=== PATIENT | female | born 1960 | race Caucasian/White ===

== ENCOUNTER 2018-07-06 10:06 | Emergency (ER) | payer OTHER ==
--- NOTE | 2018-07-06 10:30 | ED ---
Back Pain - HPI Summary HPI Summary: 54 yo F with hx back surg at [facility] in 2015, c/o low lumbar back pain x 3-[address] Durant on 07/03/[address] Durant ordered MRI's and lidocaine patch. Pt states she applied two lidocaine patches today and took her daughter's flexeril without relief. States vicodin has helped her in the past. No JETER, dizziness, chest pain, SOB, fever, abd pain, N,V or incontinence. Pain radiates from low lumbar to buttock and down right leg. Is able to walk but painful. Denies urinary sxs. Pain is sharp, rated 9/10. Pain is getting worse. Denies injury. States she lifted something heavy and pain started after that. - History of Current Complaint Chief Complaint: EDBackInjuryPain Stated Complaint: BACK PIAN Time Seen by Provider: 07/06/18 10:15 Hx Obtained From: Patient Onset/Duration: Sudden Onset, Lasting Days, Still Present, Worse Since - this am Onset/Duration: Started Days Ago Timing: Constant Back Pain Location: Is Discrete @ - low lumbar Severity Initially: Moderate Severity Currently: Severe Pain Intensity: 10 Pain Scale Used: 0-10 Numeric Character: Sharp Aggravating Symptom(s): Movement, Lifting, Walking Alleviating Symptom(s): Nothing Associated Signs And Symptoms: Positive: Pain with Weight Bearing. Negative: Fever, Weakness, Numbness, Tingling, Abdominal Pain, Flank Pain, Bladder Incontinence, Bowel Incontinence - Risk Factors Cauda Equina Risk Factors: Negative - Allergies/Home Medications Allergies/Adverse Reactions: Allergies Allergy/AdvReac Type Severity Reaction Status Date / Time NICKEL/METAL Allergy ITCHY RASH Uncoded 07/06/18 10:12 PMH/Surg Hx/FS Hx/Imm Hx Previously Healthy: No Endocrine/Hematology History: Reports: Hx Diabetes - ON MEDS Cardiovascular History: Reports: Hx Hypercholesterolemia, Hx Hypertension - ON MEDS Denies: Hx Pacemaker/ICD Respiratory History: Reports: Hx Asthma, Hx Chronic Obstructive Pulmonary Disease (COPD), Other Respiratory Problems/Disorders GI History: Reports: Hx Gastroesophageal Reflux Disease - ON MED History: Denies: Hx Renal Disease Musculoskeletal History: Reports: Hx Bursitis, Other Musculoskeletal History - LEFT FOOT BUNION, prior lumbar back surg Sensory History: Reports: Hx Contacts or Glasses - GLASSES Denies: Hx Hearing Aid Opthamlomology History: Reports: Hx Contacts or Glasses - GLASSES Psychiatric History: Reports: Hx Depression - NO MEDS Denies: Hx Panic Disorder - Surgical History Surgery Procedure, Year, and Place: TONSILS,TUBAL; LOW BACK DISC 07/2014, cranial surg at [place] for facial tic Hx Anesthesia Reactions: No Infectious Disease History: No Infectious Disease History: Denies: Traveled Outside the [place] in Last 30 Days - Family History Known Family History: Positive: Hypertension - Social History Occupation: Employed Full-time Lives: With Family Alcohol Use: None Substance Use Type: Reports: None Smoking Status (MU): Heavy Every Day Tobacco Smoker Type: Cigarettes Amount Used/How Often: 1/2 PPD Length of Time of Smoking/Using Tobacco: 25 YEARS Have You Smoked in the Last Year: Yes Review of Systems Constitutional: Negative Cardiovascular: Negative Respiratory: Negative Gastrointestinal: Negative Positive: no symptoms reported. Negative: burning, dysuria, frequency, flank pain, hematuria, incontinence, pain, urgency Positive: Arthralgia Skin: Negative Neurological: Negative Psychological: Normal All Other Systems Reviewed And Are Negative: Yes Physical Exam Triage Information Reviewed: Yes Vital Signs On Initial Exam: Initial Vitals Temp Pulse Resp BP Pulse Ox 97.2 F 89 14 169/92 98 07/06/18 10:07 07/06/18 10:07 07/06/18 10:07 07/06/18 10:07 07/06/18 10:07 Vital Signs Reviewed: Yes Appearance: Positive: Well-Appearing, Pain Distress, Obese Skin: Positive: Warm, Skin Color Reflects Adequate Perfusion, Dry Head/Face: Positive: Normal Head/Face Inspection Eyes: Positive: EOMI, Conjunctiva Clear ENT: Positive: Normal ENT inspection Neck: Positive: Supple Respiratory/Lung Sounds: Positive: Clear to Auscultation Cardiovascular: Positive: RRR, Pulses are Symmetrical in both Upper and Lower Extremities Abdomen Description: Positive: Nontender, No Organomegaly, Soft. Negative: CVA Tenderness (R), CVA Tenderness (L), Distended, Guarding Bowel Sounds: Positive: Present Musculoskeletal: Positive: Strength/ROM Intact, Pain @ - low lumbar, Other - 5/ 5 strength in lower extremities. Sensation intact. Dorsiflexion and plantar flexion intact. No spinal tenderness on palpation.. Negative: Edema Left, Edema Right Neurological: Positive: Sensory/Motor Intact, Alert, Oriented to Person Place, Time, Abnormal Reflex @ - bilat knee and ankle reflexes absent, Abnormal Gait - antalgic, Facial Symmetry, Speech Normal. Negative: Normal Gait, Focal Deficit @ Psychiatric: Positive: Normal Diagnostics - Vital Signs Vital Signs Temp Pulse Resp BP Pulse Ox 07/06/18 10:07 97.2 F 89 14 169/92 98 - Laboratory Lab Statement: Any lab studies that have been ordered have been reviewed, and results considered in the medical decision making process. - CT Lumbar spine CT CT Interpretation Completed By: Radiologist Summary of CT Findings: IMPRESSION: 1. OSTEOPENIA. 2. SPONDYLOLYSIS WITH SPONDYLOLISTHESIS AT L5-S1. 3. DEGENERATIVE DISC DISEASE AND OSTEOARTHRITIS. 4. THERE IS MULTILEVEL NEURAL FORAMINAL NARROWING DESCRIBED ABOVE. 5. THERE IS NO SIGNIFICANT CENTRAL CANAL STENOSIS. Dr. Arceo has reviewed this radiology report. Re-Evaluation - Re-Evaluation First Eval Re-Evaluation Time: 11:15 Change: Unchanged Comment: Pt still c/o pain. Will give morphine 10 mg IM x 1 and RX hydrocodone and flexeril as outpt Rx. Second Eval Re-Evaluation Time: 12:15 Change: Improved Comment: Pain is improved. Agrees to discharge. Informed about hematuria and need for f/u. Back Pain Course/Dx - Course Course Of Treatment: 58 yo F with lumbar back pain, s/p hx of lumbar spine surg at [facility] 2014, x 3 days after lifting heavy pt at work. Pt has no neuro deficit, and no cauda equina symptoms, no red flags. CT with no acute findings. UA with hematuria. Pt with no hx kidney stones, and pain not typical for renal calculi and CT shows no abnl of kidneys. Pt given toradol 30mg IM without relief. Requests additional "shot". Given morphine 10mg IM. Will RX hydrocodone and flexeril and advise pt to keep appts for MRI's, and to f/u with Dr. Durant. Work release given. - Diagnoses Differential Diagnosis/HQI/PQRI: Positive: Arthritis, Cauda Equina Syndrome, Compressive Cord Syndrome, Herniated Disc, Strain, Sprain Provider Diagnoses: S/P lumbar laminectomy, Acute lumbar back pain, Spondylolisthesis at L5-S1 level, Hematuria, microscopic Discharge - Sign-Out/Discharge Documenting (check all that apply): Patient Departure - home - Discharge Plan Condition: Stable Disposition: HOME Prescriptions: Cyclobenzaprine TAB* [Flexeril 10 MG TAB*] 10 mg PO TID PRN #20 tab PRN Reason: Pain HYDROcodone/ACETAMIN 5-325 MG* [[place] 5-325 TAB*] 1 tab PO Q4H PRN #18 tab MDD 6 PRN Reason: Pain Patient Education Materials: Low Back Strain (ED), Hematuria (ED) Forms: *Work Release Referrals: Leticia Durant MD [Primary Care Provider] - 2 Days Additional Instructions: Your urine sample showed some hidden blood. This does not appear to be related to your back pain at this time, but it should be followed and rechecked by Dr. Durant within the next 1-[address] of your LS spine does show cause for your pain, but no acute need for intervention. You were given a shot of ketorolac 30mg with minimal relief, and then a shot of morphine 10mg with more relief. Dr. Arceo has prescribed hydrocodone and flexeril that you may use as directed for pain. Keep your appointments for MRI's and follow up with Dr. Durant as scheduled and directed. Return to the ER if any new or worsening symptoms. - Billing Disposition and Condition Condition: STABLE Disposition: Home
[2018-07-06] MEDS ORDERED: Ketorolac INJ* 30 MG/ML 1 ML VIAL IM ONE (10:35)
--- OUTSIDE RECORDS SUMMARY | 2018-07-06 10:35 | XMS REPORT | Continuity of Care Document ---
:1960 External Reference #:[id number] Author Name Alessandra Pozo Care Team Providers Name Role Phone Leticia Durant MD Primary Care Physician Unavailable Payers Type Date Identification Numbers Payment Provider Subscriber Effective: Policy Number: [id number] [employer] 2012 Group Number: [id number] [address] Group Name: [place] [address] PayID: [id number] Expires: 2012 Policy Number: [id number] [employer] Group Number: [id number] [address] PayID: [id number] [place] [address] Advance Directives Description No Information Available Problems Date Description Provider Status Onset: 11/21/2010 Hyperlipidemia Sol Reynoso M.D., FACP Active Onset: 11/21/2010 Tobacco user Sol Reynoso M.D., FACP Active Onset: 11/21/2010 Depressive disorder Sol Reynoso M.D., FACP Active Onset: 11/21/2010 Benign essential hypertension Sol Reynoso M.D., FACP Active Onset: 03/26/2012 Type 2 diabetes mellitus Sol Reynoso M.D., FACP Active Onset: 02/08/2015 Hemifacial spasm Yesenia Olivarez M.D. Active Onset: 02/08/2015 Restless legs Yesenia Olivarez M.D. Active Onset: 05/09/2015 Essential hypertension Sridevi Callahan N.P. Active Family History Date Family Member(s) Problem(s) Comments Father due to Stroke () Mother due to Septic from UTI () Mother 93 First Daughter Fibromyalgia Lyme Disease Second Daughter Increased Intrcranial Pressure Siblings 6 2 Sisters - HTN, High Cholesterol 1 Half Sister - Health unknown 1 Half Brother - Health unknown 1 Half Sister - Age 63 DM1, after back surgery 1 Half Brother - Age 65, early dementia, brain trauma Social History Type Date Description Comments Sex Unknown Marital Status Lives With Boyfriend Occupation [facility] Tobacco Use Start: Unknown Light tobacco smoker (10 or fewer cigarettes/day) Smoking Status Reviewed: 07/03/18 Light tobacco smoker (10 or fewer cigarettes/day) ETOH Use Denies alcohol use Tobacco Use Start: Unknown Patient is a current 1/2 pack daily, smoker, smokes every trying to quit. day Recreational Drug Use Denies Drug Use Exercise Type/Frequency Exercises rarely Allergies, Adverse Reactions, Alerts Description No Known Drug Allergies Medications Medication Date Status Form Strength Qnty SIG Indications Ordering Provider Proair HFA 05/15 Active Aerosol 108(90Bas 25.5g 1 - 2 e) m puffs by Varn, N.P. mcg/Act mouth every 4 hours as needed Gabapentin 04/25 Active Capsules 300mg 360ca one ps capsule po Varn, N.P. at noon, take 2 to 3 capsules by mouth at bedtime as directed Lidocaine 01/17 Active Patches 5% 90uni Apply 1 ts Patch For Varn, N.P. Up To 12 Hours Once A Day. Omeprazole 10/31 Active Capsules 40mg 90cap Take 1 DR s Capsule By Varn, N.P. Mouth Every Day Simvastatin 03/14 Active Tablets 20mg 90tab Take 1 E78.5 s Tablet By Varn, N.P. Mouth AT Bedtime Metformin HCL 03/14 Active Tablets 1000mg 90tab Take 1 s Tablet By Varn, N.P. Mouth With Dinner Hydrochlorothiazid 12/07 Active Tablets 25mg 90tab Take 1 s Tablet By Varn, N.P. Mouth Daily Ibuprofen 00/00 Active Capsules 200mg prn Unknown /0000 Prednisone 05/08 Hx TBPK 10mg (21) 21uni 4 tabs J44.1 ts day#1, 3 MD Jackie - tabs 05/16 day#2, tabs day#3, 1 tab for 7 days Bactroban 04/01 Hx Cream 2% 15uni apply to Z00.00 ts affected PATRICIA Roberson - area twice 04/152018 Prednisone 07/31 Hx Tablets 10mg 20tab 4 tabs by J44.1 s mouth days PATRICIA Roberson - 1-2; 3 08/08 tabs by mouth on days 3-4, 2 tabs by mouth on days 5-6, 1 tab by mouth days 7-8 Levofloxacin 07/31 Hx Tablets 500mg 10tab one by Yuriy.1 s mouth PATRICIA Roberson - daily for 08/10 10 Tussionex 07/31 Hx Suer 10-8mg/5M 115ml 5ml twice J44.1 Norris Pennkine L daily as PATRICIA Roberson Extended Release - needed for 08/30 cough Spiriva Respimat 07/05 Hx Aerosol 2.5mcg/Ac 4gm inhale two J44.1 t puffs by Cotton, - mouth M.D. 10/18 every Prednisone 07/05 Hx Tablets 10mg 20tab 4 tabs by J44.1 s mouth days Cotton, - 1-2; 3 M.D. 07/31 tabs by mouth on days 3-4, 2 tabs by mouth on days 5-6, 1 tab by mouth days 7-8 Azithromycin 07/05 Hx Tablets 250mg 6tabs 2 tabs by J44.1 mouth on Cotton, - day 1; 1 M.D. 07/31 tab by mouth every day on days 2-5 Clotrimazole 07/05 Hx Chuck 10mg 70uni 1 by mouth K13.79 ts 5 times Cotton, - daily as M.D. 07/19 needed for 2 weeks Azithromycin 07/26 Hx Tablets 250mg 6tabs two tabs day one, [place], N.P. - one daily 08/05 till Bupropion HCL ER 02/22 Hx Tablets 150mg 30tab take 1 Leticia (XL) ER 24HR s tablet by Cotton, - mouth one M.D. 02/07 time daily Fluoxetine HCL 10/31 Hx Tablets 20mg 90tab take 1 F32.9 s tablet by Varn, N.P. - mouth / every Ventolin HFA 05/16 Hx Aerosol 108(90Bas 90day 2 puffs by e) s mouth four Varn, N.P. - mcg/Act times a 03/12 day needed Omeprazole 05/16 Hx Capsules 20mg 90cap take [address] self capsule Varn, N.P. - daily 10/31 Proair HFA 05/16 Hx Aerosol 108(90Bas 25.5g 1 to 2 J20.9 e) m inhalation Varn, N.P. - mcg/Act s every 4 04/12 hours needed Advair Diskus 05/09 Hx Aerosol 500-50mcg 60uni Use 1 puff J20.9 /Dose ts twice Varn, N.P. - daily 03/12 Pulmicort 04/29 Hx Aerosol 180mcg/Ac 1unit 2 puffs J20.9 t s twice Varn, N.P. - daily 05/09 Tylenol With 04/28 Hx Tablets 300-30mg 15tab 1 tablet Leticia Codeine #3 s by mouth Cotton, - every 8 M.D. 09/18 hours needed for pain Omeprazole 03/21 Hx Capsules Na 90cap Take 1 DR self Capsule Varn, N.P. - Daily 05/16 Carbamazepine 02/08 Hx Tablets 200mg 120ta 1 tab by 781.0 Yesenia Rodriguez bs mouth 3-4 Juanis, - times a M.D. 03/02 day directed. Methocarbamol 10/15 Hx Tablets 500mg 45tab one to two 722.10 Shawn Briscoe /2014 s up to four Robin, - times a M.D. 02/07 day needed for spasm Flexeril 08/03 Hx Tablets 10mg 60tab 1 by mouth Shawn Briscoe /2014 s three Pollack, - times a M.D. 08/03 day as needed Fluoxetine HCL 05/20 Hx Capsules 20mg 30cap 1 by mouth s every day Varn, N.P. - 02/07 Cymbalta 05/[address] 30mg 30cap 1 by mouth 311 Part s every day Varn, N.P. - 05/20 Gabapentin 05/07 Hx Capsules 300mg 270ca Take 2 To ps 3 Capsules Varn, N.P. - By Mouth 02/02 AT Bedtime /2017 as Directed Hydrocodone-Acetam 04/22 Hx Tablets 5-325mg 90tab 1-2 tab by 724.5 Shawn Briscoe ino s mouth Robin, - every 6 M.D. 02/07 hours needed for pain Gabapentin 10/22 Hx Capsules 100mg 90cap 1-3 at s night Angeles, - M.DMagaly, FACP 05/07 Zolpidem Tartrate 10/22 Hx Tablets 5mg 20tab 1 tab at 378.9 s bedtime as Angeles, - needed for M.D., FACP 02/07 Azithromycin 04/27 Hx Tablets 250mg 6tabs two tabs 466.0 day one, Varn, N.P. - one daily 05/07 till Benzonatate 04/27 Hx Capsules 200mg 30cap one by 466.0 s mouth Varn, N.P. - three 06/23 daily as needed for cough Nebulizer 04/27 Hx Use prn 466.0 for asthma Varn, N.P. - 02/07 Ipratropium 04/27 Hx Solution 0.5-2.5(3 90uni 1 vial in 466.0 [employer]/Albuterol )mg/3ML ts nebulizer Varn, N.P. Sulfate - three 05/11 times day as needed for asthma Ventolin HFA 04/27 Hx Aerosol 108(90Bas 1unit 1 to 2 e) s inhalation Varn, N.P. - mcg/Act s every 4 02/07 hours needed Oxycodone HCL 11/21 Hx Tablets 5mg 30tab 1-2 po qid Shawn Briscoe /2012 s prn Yudelka Kelly M.D. 04/08 Cyclobenzaprine 09/08 Hx Tablets 10mg 60tab one by 724.5 Shawn Briscoe HCL s mouth Robin, - three M.D. 02/07 times day as needed spasm Called Rx Hydrocodone/Acetam 09/08 Hx Tablets 5-325mg 90tab 1 tablet 724.5 Shawn Briscoe inophen s every 4 - Robin, - 6 hours as M.D. 04/22 needed pain Medrol Dosepak 09/08 Hx Tablets 4mg 1pak as directed Varn, N.P. - 09/14 Medrol Dosepak 02/04 Hx Tablets 4mg 1tabs follow 722.93 Sol package Angeles, - directions M.DMagaly, FACP 03/26 take with food Cyclobenzaprine 02/04 Hx Tablets 10mg 60tab 1 tablet Sol HCL s three Angeles, - times a M.D., FACP 03/26 day needed Lumbar Support 02/04 Hx 722.93 Sol Brace Yudelka Reynoso M.D., FACP 04/08 Ultram 01/21 Hx Tablets 50mg 30tab sig 1 po Sol s q8h prYudelka Cohen M.D., FACP 09/08 Oxycodone/Acetamin 01/13 Hx Capsules 5-500mg 40cap 1 tablet 724.3 Sol ophen s by mouth Angeles, - every 4-6 M.D., FACP 03/26 hours needed Escitalopram 11/28 Hx Tablets 20mg 90tab Take 1 Sol Oxalate s Tablet Angeles, - Daily M.D., FACP 09/08 Azithromycin 11/19 Hx Tablets 250mg 6tabs 2 tab po 466.0 Joana /2011 day 1 then Alexander, - 1 tab po M.D. 02/04 day 2- Cyclobenzaprine 10/18 Hx Tablets 5mg 30tab take 1-2 Sol s tablet by Angeles, - mouth M.D., [facility] 02/04 times as needed Metformin HCL ER 12/07 Hx Tablets 500mg 90tab Take 1 ER 24HR s Tablet Angeles, - Daily M.D., FACP 03/14 Simvastatin 11/21 Hx Tablets 10mg 90tab 1 at 272.4 s bedtime Angeles - Neeraj, [facility] 03/14 Albuterol Inhaler 08/30 Hx 3unit 2 puffs po s qid prn Yudelka Reynoso M.D., [facility] 05/16 Niaspan 07/13 Hx Tablets 500mg 270ta 3 tablets ER bs once daily Angeles, - at bedtime M.D., [facility] 03/14 Nicorette 01/31 Hx TTS 50uni use as ts directed Yudelka Reynoso M.D., [facility] 07/13 Zocor 12/30 Hx Tablets 40mg 90tab 1 tablet s every Angeles, - night M.D., [facility] 07/13 HCTZ 12/30 Hx 25mg. 90uni 1 tablet ts every Angeles, - morning M.D., [facility] 03/14 Lexapro 12/30 Hx Tablets 20mg 90tab 1 tablet s every day Angeles, - M.D., [facility] 11/28 Metformin HCL XR 12/30 Hx Tablets 500mg 90tab 1 tablet s by mouth Angeles, - daily M.D., [facility] 03/14 Gabapentin 12/30 Hx Capsules 300mg 180ca 1 Tablet ps Twice Angeles, - Daily M.D., [facility] 10/22 Omeprazole 12/30 Hx Capsules 20mg 90cap take 1 s capsule [place], N.P. - daily 03/21 Lidocaine Hx Patches 5% 90uni apply Sridevi /0000 ts patch up Varn, N.P. - to 12 05/04 hours once /2017 a day. Medications Administered in Office Medication Date Status Form Strength Qnty SIG Indications Ordering Provider Inj, 07/20/ Administered Injection Reinaldo D. Regadenoson, 0.1 2013 Brand, MG M.D. Inj, 07/20/ Administered Injection Luiza Regadenoson, 0.1 2013 Cary, MG M.D. Aminophylline 07/20/ Administered Injection Reinaldo D. 2013 Brand, M.D. Aminophylline 07/20/ Administered Injection Luiza 2013 Cary, M.D. Technetium TC 07/20/ Administered Injection Reinalod D. 99M Tetrofosmin, 2013 Brand, Per Unit Dose Up M.D. To 40 Millicuries Technetium TC 07/20/ Administered Injection Luiza 99M Tetrofosmin, 2013 [place], Per Unit Dose Up M.D. To 40 Millicuries Immunizations CPT Code Status Date Vaccine Lot # [id number] Given 05/28/2018 Pneumonia Vaccine [id number] Given 05/28/2018 Influenza Virus Vaccine, Quadrivalent, Split, Preservative Free Vital Signs Date Vital Result Comment 07/03/2018 11:31am Height 64 inches 5'4" Weight 212.00 lb Heart Rate 82 /min BP Systolic Sitting 120 mmHg BP Diastolic Sitting 77 mmHg O2 % BldC Oximetry 97 % BMI (Body Mass Index) 36.4 kg/m2 05/08/2018 12:42pm Height 64 inches 5'4" Weight 221.00 lb Heart Rate 80 /min BP Systolic Sitting 110 mmHg Lue large cuff BP Diastolic Sitting 70 mmHg Lue large cuff Respiratory Rate 12 /min O2 % BldC Oximetry 98 % BMI (Body Mass Index) 37.9 kg/m2 04/01/2018 10:41am Height 64 inches 5'4" Weight 213.00 lb Heart Rate 83 /min BP Systolic Sitting 118 mmHg BP Diastolic Sitting 58 mmHg Body Temperature 97.9 F O2 % BldC Oximetry 94 % BMI (Body Mass Index) 36.6 kg/m2 03/13/2018 3:04pm Height 64 inches 5'4" Weight 212.00 lb Heart Rate 76 /min BP Systolic Sitting 118 mmHg BP Diastolic Sitting 86 mmHg Respiratory Rate 14 /min O2 % BldC Oximetry 98 % BMI (Body Mass Index) 36.4 kg/m2 11/23/2017 7:49am Height 64 inches 5'4" Weight 214.00 lb Heart Rate 80 /min BP Systolic Sitting 146 mmHg BP Diastolic Sitting 92 mmHg Respiratory Rate 14 /min O2 % BldC Oximetry 94 % BMI (Body Mass Index) 36.7 kg/m2 Neck Circumference in inches 14.75 10/18/2017 4:23pm Weight 218.00 lb Heart Rate 81 /min BP Systolic 119 mmHg BP Diastolic 72 mmHg Body Temperature 97.4 F O2 % BldC Oximetry 97 % 09/18/2017 11:17am Weight 214.12 lb Heart Rate 79 /min BP Systolic 132 mmHg BP Diastolic 74 mmHg Body Temperature 97.0 F O2 % BldC Oximetry 97 % 07/31/2017 3:59pm Heart Rate 80 /min BP Systolic 142 mmHg BP Diastolic 80 mmHg Body Temperature 97.5 F O2 % BldC Oximetry 96 % 07/05/2017 11:28am Weight 216.50 lb Heart Rate 78 /min BP Systolic 136 mmHg BP Diastolic 72 mmHg Body Temperature 97.4 F O2 % BldC Oximetry 94 % with deep breaths 02/07/2017 10:02am Height 64 inches 5'4" Weight 214.00 lb Heart Rate 87 /min BP Systolic Sitting 130 mmHg BP Diastolic Sitting 80 mmHg O2 % BldC Oximetry 93 % BMI (Body Mass Index) 36.7 kg/m2 08/09/2016 10:24am Weight 216.00 lb with shoes Heart Rate 83 /min BP Systolic Sitting 120 mmHg BP Diastolic Sitting 58 mmHg O2 % BldC Oximetry 98 % 12/02/2015 11:42am Weight 216.25 lb Heart Rate 82 /min BP Systolic Sitting 113 mmHg BP Diastolic Sitting 68 mmHg Body Temperature 97.6 F O2 % BldC Oximetry 97 % 11/01/2015 8:57am Height 64 inches 5'4" Weight 213.50 lb Heart Rate 75 /min BP Systolic Sitting 122 mmHg BP Diastolic Sitting 70 mmHg Body Temperature 97.3 F Pain Level 7 O2 % BldC Oximetry 98 % BMI (Body Mass Index) 36.6 kg/m2 05/16/2015 8:31am Height 64 inches 5'4" Weight 217.75 lb Heart Rate 77 /min BP Systolic Sitting 118 mmHg BP Diastolic Sitting 80 mmHg Respiratory Rate 16 /min Body Temperature 97.4 F Pain Level 0 O2 % BldC Oximetry 96 % BMI (Body Mass Index) 37.4 kg/m2 05/09/2015 10:35am Height 64 inches 5'4" Weight 218.00 lb Heart Rate 64 /min BP Systolic Sitting 128 mmHg BP Diastolic Sitting 82 mmHg Respiratory Rate 13 /min Body Temperature 98.6 F O2 % BldC Oximetry 98 % BMI (Body Mass Index) 37.4 kg/m2 04/29/2015 2:33pm Weight 217.00 lb Heart Rate 102 /min BP Systolic Sitting 142 mmHg BP Diastolic Sitting 80 mmHg Body Temperature 98.2 F O2 % BldC Oximetry 91 % 04/26/2015 1:35pm Weight 219.00 lb Heart Rate 66 /min BP Systolic Sitting 136 mmHg BP Diastolic Sitting 86 mmHg Body Temperature 97.9 F O2 % BldC Oximetry 96 % 03/03/2015 2:32pm Height 64 inches 5'4" Heart Rate 72 /min BP Systolic Sitting 122 mmHg BP Diastolic Sitting 74 mmHg Respiratory Rate 16 /min 02/08/2015 10:07am Height 64 inches 5'4" Weight 209.00 lb Heart Rate 76 /min BP Systolic Sitting 120 mmHg BP Diastolic Sitting 78 mmHg Respiratory Rate 16 /min BMI (Body Mass Index) 35.9 kg/m2 11/05/2014 8:38am Height 64 inches 5'4" Weight 214.00 lb Heart Rate 75 /min BP Systolic 114 mmHg BP Diastolic 70 mmHg Body Temperature 97.6 F BMI (Body Mass Index) 36.7 kg/m2 10/15/2014 3:11pm Height 64 inches 5'4" Weight 212.00 lb Heart Rate 88 /min BP Systolic Sitting 150 mmHg BP Diastolic Sitting 90 mmHg Pain Level 3 back BMI (Body Mass Index) 36.4 kg/m2 08/20/2014 9:56am Height 64 inches 5'4" Weight 214.00 lb Heart Rate 88 /min BP Systolic Sitting 168 mmHg BP Diastolic Sitting 102 mmHg Pain Level 5 L hip/leg BMI (Body Mass Index) 36.7 kg/m2 07/06/2014 2:00pm Height 64 inches 5'4" Weight 210.00 lb Heart Rate 84 /min BP Systolic Sitting 112 mmHg BP Diastolic Sitting 58 mmHg Pain Level 5 back BMI (Body Mass Index) 36.0 kg/m2 07/06/2014 1:05pm Height 64 inches 5'4" Weight 211.00 lb Heart Rate 84 /min BP Systolic 112 mmHg BP Diastolic 58 mmHg BMI (Body Mass Index) 36.2 kg/m2 06/11/2014 10:49am Weight 208.00 lb Heart Rate 80 /min BP Systolic Sitting 114 mmHg BP Diastolic Sitting 70 mmHg Pain Level 6 06/08/2014 9:57am Height 64 inches 5'4" Weight 212.00 lb Heart Rate 76 /min BP Systolic Sitting 122 mmHg BP Diastolic Sitting 72 mmHg BMI (Body Mass Index) 36.4 kg/m2 05/07/2014 8:33am Height 64 inches 5'4" Weight 212.00 lb Heart Rate 84 /min BP Systolic Sitting 126 mmHg BP Diastolic Sitting 82 mmHg Body Temperature 98.1 F BMI (Body Mass Index) 36.4 kg/m2 04/26/2014 11:28am Height 64 inches 5'4" Weight 210.00 lb Heart Rate 72 /min BP Systolic Sitting 126 mmHg BP Diastolic Sitting 78 mmHg Pain Level 5 back BMI (Body Mass Index) 36.0 kg/m2 04/13/2014 11:28am Height 64 inches 5'4" Weight 207.00 lb Heart Rate 80 /min BP Systolic Sitting 120 mmHg BP Diastolic Sitting 78 mmHg Pain Level 3 Back/L buttock/Leg BMI (Body Mass Index) 35.5 kg/m2 04/06/2014 8:56am Height 64 inches 5'4" Weight 206.00 lb Heart Rate 88 /min BP Systolic Sitting 122 mmHg BP Diastolic Sitting 80 mmHg BMI (Body Mass Index) 35.4 kg/m2 10/22/2013 2:23pm Weight 198.00 lb Heart Rate 82 /min BP Systolic Sitting 124 mmHg BP Diastolic Sitting 80 mmHg 09/01/2013 9:41am Height 64 inches 5'4" Weight 195.25 lb Heart Rate 80 /min BP Systolic 116 mmHg BP Diastolic 60 mmHg BMI (Body Mass Index) 33.5 kg/m2 06/23/2013 2:53pm Weight 198.25 lb Heart Rate 84 /min BP Systolic 124 mmHg BP Diastolic 86 mmHg 04/27/2013 2:29pm Weight 199.00 lb Heart Rate 76 /min BP Systolic Sitting 120 mmHg BP Diastolic Sitting 72 mmHg Body Temperature 97.1 F 04/08/2013 10:02am Height 64.25 inches 5'4.25" Weight 196.75 lb Heart Rate 74 /min BP Systolic Sitting 112 mmHg BP Diastolic Sitting 72 mmHg BMI (Body Mass Index) 33.5 kg/m2 10/13/2012 9:34am Height 64.25 inches 5'4.25" Weight 205.00 lb Heart Rate 80 /min BP Systolic Sitting 114 mmHg BP Diastolic Sitting 80 mmHg BMI (Body Mass Index) 34.9 kg/m2 09/08/2012 9:00am Height 64.25 inches 5'4.25" Weight 214.50 lb w/ back brace Heart Rate 88 /min BP Systolic Sitting 150 mmHg BP Diastolic Sitting 92 mmHg BMI (Body Mass Index) 36.5 kg/m2 03/26/2012 9:54am Height 64.25 inches 5'4.25" Weight 220.00 lb Heart Rate 72 /min BP Systolic Sitting 130 mmHg BP Diastolic Sitting 76 mmHg BMI (Body Mass Index) 37.5 kg/m2 2012 2:57pm Height 64.25 inches 5'4.25" Weight 219.00 lb Heart Rate 88 /min BP Systolic Sitting 156 mmHg BP Diastolic Sitting 94 mmHg Body Temperature 98.5 F BMI (Body Mass Index) 37.3 kg/m2 01/14/2012 12:18pm Height 64.25 inches 5'4.25" Weight 223.00 lb Heart Rate 80 /min BP Systolic Standing 142 mmHg BP Diastolic Standing 88 mmHg Body Temperature 98.4 F BMI (Body Mass Index) 38.0 kg/m2 11/20/2011 11:24am Height 64.25 inches 5'4.25" Weight 217.00 lb BP Systolic Sitting 130 mmHg l BP Diastolic Sitting 82 mmHg l Body Temperature 97.7 F BMI (Body Mass Index) 37.0 kg/m2 11/01/2011 11:44am Height 64.25 inches 5'4.25" Weight 222.00 lb Heart Rate 76 /min BP Systolic Sitting 128 mmHg BP Diastolic Sitting 72 mmHg BMI (Body Mass Index) 37.8 kg/m2 10/19/2011 11:20am Height 64.25 inches 5'4.25" Weight 224.00 lb Heart Rate 80 /min BP Systolic Sitting 122 mmHg BP Diastolic Sitting 78 mmHg BMI (Body Mass Index) 38.1 kg/m2 06/04/2011 8:41am Height 64.25 inches 5'4.25" Weight 226.00 lb Heart Rate 68 /min BP Systolic Sitting 108 mmHg BP Diastolic Sitting 62 mmHg BMI (Body Mass Index) 38.5 kg/m2 05/01/2011 11:28am Height 64.25 inches 5'4.25" Weight 224.00 lb Heart Rate 74 /min BP Systolic Sitting 128 mmHg BP Diastolic Sitting 76 mmHg BMI (Body Mass Index) 38.1 kg/m2 03/14/2011 11:23am Height 64.25 inches 5'4.25" Weight 221.00 lb Heart Rate 78 /min BP Systolic Sitting 112 mmHg BP Diastolic Sitting 64 mmHg BMI (Body Mass Index) 37.6 kg/m2 11/21/2010 1:47pm Weight 224.00 lb Heart Rate 78 /min BP Systolic Sitting 128 mmHg BP Diastolic Sitting 76 mmHg 08/30/2010 9:02am Weight 226.00 lb Heart Rate 82 /min BP Systolic 130 mmHg BP Diastolic 80 mmHg 07/13/2010 8:49am Weight 227.00 lb Heart Rate 88 /min BP Systolic Sitting 118 mmHg BP Diastolic Sitting 82 mmHg Results Test Date Facility Test Result H/L Range Note Wound 04/01/2018 [facility] Wound/Misc SEE RESULT 1, 2 Culture/[address] [place] [address] Stain [phone] Comp Metabolic 03/06/2018 [facility] Sodium 141 mmol/L N 135- [address] [place], [place] [id number] [phone] Potassium 4.2 mmol/L N 3.5-5.0 Chloride 106 mmol/L N 101-111 Co2 Carbon Dioxide 28 mmol/L N 22-32 Anion Gap 7 mmol/L N 2-11 Glucose 97 mg/dL N 70-100 Blood Urea Nitrogen 16 mg/dL N 6-24 Creatinine 0.59 mg/dL N 0.51-0.95 BUN/Creatinine Ratio 27.1 High 8-20 Calcium 9.0 mg/dL N 8.6-10.3 Total Protein 6.2 g/dL Low 6.4-8.9 Albumin 4.0 g/dL N 3.2-5.2 Globulin 2.2 g/dL N 2-4 Albumin/Globulin Ratio 1.8 N 1-3 Total Bilirubin 0.40 mg/dL N 0.2-1.0 Alkaline Phosphatase 106 U/L High 34-104 Alt 17 U/L N 7-52 Ast 17 U/L N 13-39 Egfr Non- 104.7 >60 Egfr 126.7 >60 3 Lipid Profile 03/06/2018 [facility] Cholesterol 210 mg/dL 4 (Trig/Chol/HDL) [address] [place] [address] [phone] HDL Cholesterol 45.8 mg/dL 5 Triglycerides 238 mg/dL 6 LDL Cholesterol 117 mg/dL 7 Laboratory test 03/06/2018 [facility] Hemoglobin A1c 5.9 % High 4.0-5.[address] (Glyco HGB) [place] [address] [phone] Laboratory test 09/18/2017 [facility] Hemoglobin A1c 6.1 5-7 finding Urine 09/18/2017 [facility] Ur Microalbumin < 15.0 Microalbumin 101 (mg/L) mg/[place] [address] [phone] Urine Creatinine 70.23 mg/dL Urine Microalbumin/Creatinine TNP ug/mg <31 9 Comp Metabolic Panel 02/01/2017 [facility] Sodium 138 mmol/L N 133-[address] [place] [address] [phone] Potassium 3.9 mmol/L N 3.5-5.0 Chloride 103 mmol/L N 101-111 Co2 Carbon Dioxide 30 mmol/L N 22-32 Anion Gap 5 mmol/L N 2-11 Glucose 95 mg/dL N 70-100 Blood Urea Nitrogen 11 mg/dL N 6-24 Creatinine 0.53 mg/dL N 0.51-0.95 BUN/Creatinine Ratio 20.8 High 8-20 Calcium 9.6 mg/dL N 8.6-10.3 Total Protein 6.6 g/dL N 6.4-8.9 Albumin 4.2 g/dL N 3.2-5.2 Globulin 2.4 g/dL N 2-4 Albumin/Globulin Ratio 1.8 N 1-3 Total Bilirubin 0.60 mg/dL N 0.2-1.0 Alkaline Phosphatase 88 U/L N 34-104 Alt 15 U/L N 7-52 Ast 16 U/L N 13-39 Egfr Non- 119.3 N >60 Egfr 153.5 N >60 10 Lipid Profile 02/01/2017 [facility] Triglycerides 173 mg/dL N 11 (Trig/Chol/HDL) [address] [place] [address] [phone] Cholesterol 180 mg/dL N 12 HDL Cholesterol 43.0 mg/dL N 13 LDL Cholesterol 102 mg/dL N 14 Laboratory test 02/01/2017 [facility] Hemoglobin A1c 5.9 % N Less than [address] (Glyco HGB) 6.[address] [place] [address] [phone] Comp Metabolic 07/14/2016 [facility] Sodium 139 N 133-[address] mmol/[place] [address] [phone] Potassium 4.2 mmol/L N 3.5-5.0 Chloride 107 mmol/L N 101-111 Co2 Carbon Dioxide 29 mmol/L N 22-32 Anion Gap 3 mmol/L N 2-11 Glucose 93 mg/dL N 70-100 Blood Urea Nitrogen 13 mg/dL N 6-24 Creatinine 0.56 mg/dL N 0.51-0.95 BUN/Creatinine Ratio 23.2 High 8-20 Calcium 9.0 mg/dL N 8.6-10.3 Total Protein 6.2 g/dL Low 6.4-8.9 Albumin 4.0 g/dL N 3.2-5.2 Globulin 2.2 g/dL N 2-4 Albumin/Globulin Ratio 1.8 N 1-3 Total Bilirubin 0.60 mg/dL N 0.2-1.0 Alkaline Phosphatase 89 U/L N 34-104 Alt 15 U/L N 7-52 Ast 14 U/L N 13-39 Egfr Non- 112.0 N >60 Egfr 144.0 N >60 16 Lipid Profile 07/14/2016 [facility] Triglycerides 149 mg/dL N 17 (Trig/Chol/HDL) [address] [place] [address] [phone] Cholesterol 197 mg/dL N 18 HDL Cholesterol 46.5 mg/dL N 19 LDL Cholesterol 121 mg/dL N 20 Laboratory test 07/14/2016 [facility] Hemoglobin A1c 6.1 % High Less [address] (Glyco HGB) than [address] [place] [address] [phone] Lipid Profile 11/04/2015 [facility] Triglycerides 106 N 22 (Trig/Chol/HDL) [address] mg/[place] [address] [phone] Cholesterol 174 mg/dL N 23 HDL Cholesterol 48.4 mg/dL N 24 LDL Cholesterol 104 mg/dL N 25 Comp Metabolic Panel 11/04/2015 [facility] Sodium 139 mmol/L N 133-[address] [place] [address] [phone] Potassium 4.3 mmol/L N 3.5-5.0 Chloride 102 mmol/L N 101-111 Co2 Carbon Dioxide 31 mmol/L N 22-32 Anion Gap 6 mmol/L N 2-11 Glucose 102 mg/dL High 70-100 Blood Urea Nitrogen 14 mg/dL N 6-24 Creatinine 0.58 mg/dL N 0.51-0.95 BUN/Creatinine Ratio 24.1 High 8-20 Calcium 9.4 mg/dL N 8.6-10.3 Total Protein 6.5 g/dL N 6.4-8.9 Albumin 4.0 g/dL N 3.2-5.2 Globulin 2.5 g/dL N 2-4 Albumin/Globulin Ratio 1.6 N 1-3 Total Bilirubin 0.50 mg/dL N 0.2-1.0 Alkaline Phosphatase 100 U/L N 34-104 Alt 18 U/L N 7-52 Ast 17 U/L N 13-39 Egfr Non- 107.9 N >60 Egfr 138.8 N >60 26 Urine Microalbumin 11/04/2015 [facility] Ur Microalbumin 7.0 mg/ L N Random [address] (mg/L) [place] [address] [phone] Urine Creatinine 100.70 mg/dL N Urine Microalbumin/Creatinine 6.9 ug/mg N <31 Laboratory test 11/01/2015 [facility] Hemoglobin A1c 5.7 5-7 finding CBC Auto Diff 02/15/2015 White Blood Count 7.7 10^3/uL N 4.8-10.8 Red Blood Count 4.78 10^6/uL N 4.0-5.4 Hemoglobin 14.6 g/dL N 12.0-16.0 Hematocrit 44 % N 35-47 Mean Corpuscular Volume 91 fL N 80-97 Mean Corpuscular Hemoglobin 31 pg N 27-31 Mean Corpuscular HGB Conc 34 g/dL N 31-36 Red Cell Distribution Width 14 % N 10.5-15 Platelet Count 252 10^3/uL N 150-450 Mean Platelet Volume 9 um3 N 7.4-10.4 Abs Neutrophils 5.3 10^3/uL N 1.5-7.7 Abs Lymphocytes 1.5 10^3/uL N 1.0-4.8 Abs Monocytes 0.6 10^3/uL N 0-0.8 Abs Eosinophils 0.2 10^3/uL N 0-0.6 Abs Basophils 0.1 10^3/uL N 0-0.2 Abs Nucleated RBC 0.01 10^3/uL N Granulocyte % 68.9 % N 38-83 Lymphocyte % 19.7 % Low 25-47 Monocyte % 8.1 % N 1-9 Eosinophil % 2.1 % N 0-6 Basophil % 1.2 % N 0-2 Nucleated Red Blood Cells % 0.1 N Comp Metabolic Panel 02/15/2015 Sodium 139 mmol/L N 133-145 Potassium 3.6 mmol/L N 3.5-5.0 Chloride 101 mmol/L N 101-111 Co2 Carbon Dioxide 30 mmol/L N 22-32 Anion Gap 8 mmol/L N 2-11 Glucose 118 mg/dL High 70-100 Blood Urea Nitrogen 14 mg/dL N 6-24 Creatinine 0.65 mg/dL N 0.51-0.95 BUN/Creatinine Ratio 21.5 High 8-20 Calcium 9.4 mg/dL N 8.6-10.3 Total Protein 6.4 g/dL N 6.4-8.9 Albumin 4.3 g/dL N 3.2-5.2 Globulin 2.1 g/dL N 2-4 Albumin/Globulin Ratio 2.0 N 1-3 Total Bilirubin 0.50 mg/dL N 0.2-1.0 Alkaline Phosphatase 91 U/L N 34-104 Alt 18 U/L N 7-52 Ast 16 U/L N 13-39 Egfr Non- 94.6 N >60 Egfr 121.7 N >60 27 Lipid Profile 10/27/2014 [facility] Triglycerides 143 mg/dL N 28, 29 (Trig/Chol/HDL) [address] [place] [address] [phone] Cholesterol 192 mg/dL N 30 HDL Cholesterol 48.3 mg/dL N 31 LDL Cholesterol 115 mg/dL N 32 Comp Metabolic Panel 10/27/2014 [facility] Sodium 142 mmol/L N 133-[address] [place] [address] [phone] Potassium 4.3 mmol/L N 3.5-5.0 Chloride 105 mmol/L N 101-111 Co2 Carbon Dioxide 31 mmol/L N 22-32 Anion Gap 6 mmol/L N 2-11 Glucose 97 mg/dL N 70-100 Blood Urea Nitrogen 15 mg/dL N 6-24 Creatinine 0.59 mg/dL N 0.51-0.95 BUN/Creatinine Ratio 25.4 High 8-20 Calcium 9.2 mg/dL N 8.6-10.3 Total Protein 6.1 g/dL Low 6.4-8.9 Albumin 4.1 g/dL N 3.2-5.2 Globulin 2.0 g/dL N 2-4 Albumin/Globulin Ratio 2.1 N 1-3 Total Bilirubin 0.50 mg/dL N 0.2-1.0 Alkaline Phosphatase 81 U/L N 34-104 Alt 24 U/L N 7-52 Ast 20 U/L N 13-39 Egfr Non- 106.2 N >60 Egfr 136.6 N >60 33 CBC Auto Diff 07/19/2014 [facility] White Blood 5.0 10^3/uL N 4.8-10.[address] [place] [address] [phone] Red Blood Count 4.37 10^6/uL N 4.0-5.4 Hemoglobin 13.3 g/dL N 12.0-16.0 Hematocrit 39 % N 35-47 Mean Corpuscular Volume 90 fL N 80-97 Mean Corpuscular Hemoglobin 31 pg N 27-31 Mean Corpuscular HGB Conc 34 g/dL N 31-36 Red Cell Distribution Width 14 % N 10.5-15 Platelet Count 257 10^3/uL N 150-450 Mean Platelet Volume 8 um3 N 7.4-10.4 Abs Neutrophils 2.7 10^3/uL N 1.5-7.7 Abs Lymphocytes 1.5 10^3/uL N 1.0-4.8 Abs Monocytes 0.5 10^3/uL N 0-0.8 Abs Eosinophils 0.2 10^3/uL N 0-0.6 Abs Basophils 0 10^3/uL N 0-0.2 Abs Nucleated RBC 0.01 10^3/uL N Granulocyte % 54.7 % N 38-83 Lymphocyte % 30.9 % N 25-47 Monocyte % 10.1 % High 1-9 Eosinophil % 3.6 % N 0-6 Basophil % 0.7 % N 0-2 Nucleated Red Blood Cells % 0.1 N Comp Metabolic Panel 07/19/2014 [facility] Sodium 138 mmol/L N 133-145 [address] [place] [address] [phone] Potassium 4.1 mmol/L N 3.5-5.0 Chloride 102 mmol/L N 101-111 Co2 Carbon Dioxide 32 mmol/L N 22-32 Anion Gap 4 mmol/L N 2-11 Glucose 132 mg/dL High 70-100 Blood Urea Nitrogen 12 mg/dL N 6-24 Creatinine 0.57 mg/dL N 0.51-0.95 BUN/Creatinine Ratio 21.1 High 8-20 Calcium 9.3 mg/dL N 8.6-10.3 Total Protein 6.3 g/dL Low 6.4-8.9 Albumin 3.9 g/dL N 3.2-5.2 Globulin 2.4 g/dL N 2-4 Albumin/Globulin Ratio 1.6 N 1-3 Total Bilirubin 0.40 mg/dL N 0.2-1.0 Alkaline Phosphatase 86 U/L N 34-104 Alt 23 U/L N 7-52 Ast 22 U/L N 13-39 Egfr Non- 110.5 N >60 Egfr 142.1 N >60 34 Type & Screen 07/19/2014 [facility] Patient Blood Type B Positive N 35 [address] [place] [address] [phone] Antibody Screen NEGATIVE N Comp Metabolic Panel 05/04/2014 [facility] Sodium 140 mmol/L N 133-145 36 [address] [place] [address] [phone] Potassium 4.1 mmol/L N 3.7-5.6 Chloride 103 mmol/L N 101-111 Co2 Carbon Dioxide 31 mmol/L N 22-32 Anion Gap 6 mmol/L N 2-11 Glucose 93 mg/dL N 70-100 Blood Urea Nitrogen 9 mg/dL N 6-24 Creatinine 0.57 mg/dL N 0.51-0.95 BUN/Creatinine Ratio 15.8 N 8-20 Calcium 9.3 mg/dL N 8.6-10.3 Total Protein 6.3 g/dL Low 6.4-8.9 Albumin 3.9 g/dL N 3.2-5.2 Globulin 2.4 g/dL N 2-4 Albumin/Globulin Ratio 1.6 N 1-3 Total Bilirubin 0.40 mg/dL N 0.2-1.0 Alkaline Phosphatase 89 U/L N 34-104 Alt 20 U/L N 7-52 Ast 18 U/L N 13-39 Egfr Non- 110.5 N >60 Egfr 142.1 N >60 37 Lipid Profile 05/04/2014 [facility] Triglycerides 126 mg/dL N 38 (Trig/Chol/HDL) [address] [place] [address] [phone] Cholesterol 173 mg/dL N 39 HDL Cholesterol 48.3 mg/dL N 40 LDL Cholesterol 100 mg/dL N 41 Laboratory test 05/04/2014 [facility] Hemoglobin A1c 5.8 % N Less [address] [place] [address] [phone] Urine 05/04/2014 [facility] Ur Microalbumin 10.0 N Microalbumin [address] (mg/L) mg/L Random [place], [place] [id number] [phone] Urine Creatinine 81.76 mg/dL N Urine Microalbumin/Creatinine 12.2 N Less Than 31 Laboratory test 09/01/2013 [facility] Cytology RUN DATE: [address] 09/02/ <[place] [address] NOTE> [phone] HPV High Risk 09/01/2013 [facility] Human Papillomavirus ECTO/ ENDO [address] [place] [address] [phone] HPV High Risk Type 16, PCR Negative Negative HPV High Risk Type 18, PCR Negative Negative HPV Other Risk types Negative Negative 44 Lipid Profile 08/31/2013 [facility] Triglycerides 126 mg/dL 40-200 (Trig/Chol/HDL) [address] [place] [address] [phone] Cholesterol 190 mg/dL Less than 200 HDL Cholesterol 51 mg/dL 40-60 45 Cholesterol/HDL Ratio 3.7 Average 1-4.44 LDL Cholesterol 113.8 High Less Than 100 46 Comp Metabolic Panel 08/31/2013 [facility] Sodium 141 mmol/L 133-[address] [place] [address] [phone] Potassium 4.1 mmol/L 3.5-5.0 Chloride 103 mmol/L 101-111 Co2 Carbon Dioxide 29.0 mmol/L 22-32 Anion Gap 9.0 mmol/L 2-11 Glucose 86 mg/dL 70-100 Blood Urea Nitrogen 14 mg/dL 6-24 Creatinine 0.50 mg/dL 0.50-1.40 BUN/Creatinine Ratio 28.0 High 8-20 Calcium 9.4 mg/dL 8.1-9.9 Total Protein 6.6 g/dL 6.2-8.1 Albumin 3.9 g/dL 3.6-5.4 Globulin 2.7 g/dL 2-4 Albumin/Globulin Ratio 1.4 1-3 Total Bilirubin 0.8 mg/dL 0.4-1.5 Alkaline Phosphatase 96 U/L 30-110 Alt 21 U/L 14-54 Ast 18 U/L 12-42 Egfr Non- 129.1 >60 Egfr 166.0 >60 47 Laboratory test 08/31/2013 [facility] Hemoglobin A1c 5.7 % Less [address] [place] [address] [phone] Urine 08/31/2013 [facility] Ur Microalbumin 4.0 mg/L [address] (mg/L) [place] [address] [phone] Urine Creatinine 82.1 mg/dL Urine Microalbumin/Creatinine 4.9 Less Than 31 Laboratory test 04/08/2013 [facility] Hemoglobin A1c 5.7 5-7 finding Laboratory test 10/13/2012 [facility] Hemoglobin A1c 5.7 5-7 finding Laboratory test 03/26/2012 [facility] Hemoglobin A1c 5.7 5-7 finding Laboratory test 03/19/2012 [facility] Hemoglobin A1c 5.9 % Less Than [address] [place] [address] [phone] Comp Metabolic 03/19/2012 [facility] Sodium 137 mmol/L 135- 145 Panel [address] [place] [address] [phone] Potassium 4.6 mmol/L 3.5-5.0 Chloride 103 mmol/L 101-111 Co2 (Carbon Dioxide) 28.0 mmol/L 22-32 Anion Gap 6.0 mmol/L 2-11 51 Glucose 92 mg/dL 70-100 BUN 11 mg/dL 6-24 Creatinine 0.6 mg/dL 0.50-1.40 One Over Creatinine 1.66 BUN/Creatinine Ratio 18.3 8-20 Calcium 9.3 mg/dL 8.1-9.9 Total Protein 5.8 GM/DL Low 6.2-8.1 Albumin 3.7 GM/DL 3.6-5.4 Globulin 2.1 GM/DL 2-4 Albumin/Globulin Ratio 1.8 1-3 Bilirubin Total 0.4 mg/dL 0.4-1.5 52 Alkaline Phosphatase 87 U/L 30-110 Alt (SGPT) 24 U/L 14-54 Ast (Sgot) 17 U/L 12-42 eGFR Non- 105.0 > 60 eGFR 135.0 > 60 53 Lipid Profile 03/19/2012 [facility] Triglyceride 284 mg/dL High 40-200 (Trig/Chol/HDL) [address] [place] [address] [phone] Cholesterol 218 mg/dL High Less Than 200 54 High Density Lipoprotein 38 mg/dL Low 40-60 55 Cholesterol/HDL Ratio 5.74 AVERAGE High 1-4.44 Low Density Lipoprotein 123 mg/dL High Less Than 100 56 Urine Microalbumin 03/19/2012 [facility] Microalbumin (MG/L) 8.0 mg/L Random [address] [place] [address] [phone] Urine Creatinine 47.5 mg/dL Rolando Alb/Creatinine Ratio 16.8 UG/MG Less Than 30 57 Lipid Profile 06/02/2011 [facility] Triglyceride 135 mg/dL 40 -200 (Trig/Chol/HDL) [address] [place] [address] [phone] Cholesterol 193 mg/dL Less Than 200 58 High Density Lipoprotein 46 mg/dL 40-60 59 Cholesterol/HDL Ratio 4.20 AVERAGE 1-4.44 Low Density Lipoprotein 120 mg/dL High Less Than 100 60 Laboratory test 06/02/2011 [facility] Glucose 105 mg/dL High 70-[address] [place] [address] [phone] Hemoglobin A1c 6.2 % High Less Than 6.0 61 Comp Metabolic Panel 03/12/2011 [facility] Sodium 144 mmol/L 135-[address] [place] [address] [phone] Potassium 4.3 mmol/L 3.5-5.0 Chloride 105 mmol/L 101-111 Co2 (Carbon Dioxide) 29.0 mmol/L 22-32 Anion Gap 10.0 mmol/L 2-11 62 Glucose 110 mg/dL High 70-100 BUN 13 mg/dL 6-24 Creatinine 0.6 mg/dL 0.50-1.40 One Over Creatinine 1.66 BUN/Creatinine Ratio 21.7 High 8-20 Calcium 9.3 mg/dL 8.1-9.9 Total Protein 6.2 GM/DL 6.2-8.1 Albumin 3.9 GM/DL 3.6-5.4 Globulin 2.3 GM/DL 2-4 Albumin/Globulin Ratio 1.7 1-3 Bilirubin Total 0.6 mg/dL 0.4-1.5 63 Alkaline Phosphatase 99 U/L 30-110 Alt (SGPT) 24 U/L 14-54 Ast (Sgot) 24 U/L 12-42 eGFR Non- 105.4 > 60 eGFR 135.5 > 60 64 Laboratory test 03/12/2011 [facility] Hemoglobin A1c 6.2 % High Less Than [address] [place] [address] [phone] Lipid Profile 03/12/2011 [facility] Triglyceride 152 40-200 (Trig/Chol/HDL) [address] mg/[place] [address] [phone] Cholesterol 202 mg/dL High Less Than 200 66 High Density Lipoprotein 51 mg/dL 40-60 67 Cholesterol/HDL Ratio 3.96 AVERAGE 1-4.44 Low Density Lipoprotein 121 mg/dL High Less Than 100 68 Laboratory test 03/12/2011 [facility] TSH 1.36 MIU/ML 0.34- 5.[address] [place] [address] [phone] 1 [id number] 2 SEE RESULT BELOW Name: HO KWON : [address]: Norris Roberson NP Acct: [id number] Unit: [id number] AGE: 58 Location: [facility] Re04/01/18 SEX: F Status: REG REF SPEC: [id number] ALESSANDRO: 04/01/18 [facility] DR: Norris Roberson NP REQ: [id number] RECD: 04/01/18 STATUS: COMP _ SOURCE: ARM LEFT SPDESC: ORDERED: Culture Stain COMMENTS: [id number] Specimen Description LEFT ANTECUBE WOUND Procedure Result Reported Site Wound/Misc Gram Stain Final 04/02/18- 1045 ML 2+ Epithelial Cells No Neutrophils Observed 3+ Gram Positive Cocci in Clusters, resembling Staph Wound/Misc Culture Final 04/03/18- 0938 ML Organism 1 STAPHYLOCOCCUS AUREUS Quantity 3+ 1. STAPHYLOCOCCUS AUREUS M.I.C. RX --------- ------ Penicillin >=0.5 R Clindamycin <=0.25 S Erythromycin >=8 R Gentamicin <=0.5 S Linezolid 2 S Oxacillin 0.5 S * Quinupristin/Dalfopristin <=0.25 S Rifampin <=0.5 S Tetracycline >=16 R Trimethoprim/Sulfamethoxazole <=10 S Vancomycin <=0.5 S Imipenem-Deduced S * Ampicillin/Sulbactam-Deduced S Cefazolin-Deduced S CONTINUED ON NEXT PAGE DEPARTMENT OF PATHOLOGY, [address] [place] [address] Warren Thurston M.D. Director [facility] # [id number] Patient: HO KWON [id number] (Continued) Specimen: [id number] Collected: 04/01/18 Received: 04/01/18 (Continued) Procedure Result Reported Site Wound/Misc Culture Final (continued) * These antibiotics are not available in the [facility] Formulary Contact the Microbiology Department for any additional antibiotic reporting. * ML - Main Lab . END OF REPORT DEPARTMENT OF PATHOLOGY, [address] [place] [address] Warren Thurston M.D. Director [facility] # [id number] 3 Because ethnic data is not always readily available, this report includes an eGFR for both -Americans and non- Americans. The National Kidney Disease Education Program (NKDEP) does not endorse the use of the MDRD equation for patients that are not between the ages of 18 and 70, are , have extremes of body size, muscle mass, or nutritional status, or are non- or non-. According to the National Kidney Foundation, irrespective of diagnosis, the stage of the disease is based on the level of kidney function: Stage Description GFR(mL/min/1.73 m(2)) 1 Kidney damage with normal or decreased GFR 90 2 Kidney damage with mild decrease in GFR 60-89 3 Moderate decrease in GFR 30-59 4 Severe decrease in GFR 15-29 5 Kidney failure <15 (or dialysis) 4 Desirable: <200 Borderline High: 200-239 High: >239 5 Low: <40 Desirable: 40-60 High: >60 6 Desirable: <150 Borderline High: 150-199 High: 200-499 Very High: >500 7 Desirable: <100 Near Optimal: 100-129 Borderline High: 130-159 High: 160-189 Very High: >189 8 Therapeutic target for the treatment of diabetes mellitus patients is <7% HBA1C, and in selective patients <6.0%. Please refer to [place] [employer] Association diabetic care guidelines for further information. 9 Unable to calculate due to low microalbumin 10 Because ethnic data is not always readily available, this report includes an eGFR for both -Americans and non- Americans. The National Kidney Disease Education Program (NKDEP) does not endorse the use of the MDRD equation for patients that are not between the ages of 18 and 70, are , have extremes of body size, muscle mass, or nutritional status, or are non- or non-. According to the National Kidney Foundation, irrespective of diagnosis, the stage of the disease is based on the level of kidney function: Stage Description GFR(mL/min/1.73 m(2)) 1 Kidney damage with normal or decreased GFR 90 2 Kidney damage with mild decrease in GFR 60-89 3 Moderate decrease in GFR 30-59 4 Severe decrease in GFR 15-29 5 Kidney failure <15 (or dialysis) 11 Desirable <150 Borderline high 150-199 High 200-499 Very High >500 12 Desirable <200 Borderline high 200-239 High >239 13 Low <40 Desirable: 40-60 High: >60 14 Desirable: <100 mg/dL Near Optimal: 100-129 mg/dL Borderline High: 130-159 mg/dL High: 160-189 mg/dL Very High: >189 mg/dL 15 Therapeutic target for the treatment of diabetes Mellitus patients is <7% HBA1C, and in selective patients <6.0%.Please refer to [place] [employer] Diabetic care guidelines for further information. 16 Because ethnic data is not always readily available, this report includes an eGFR for both -Americans and non- Americans. The National Kidney Disease Education Program (NKDEP) does not endorse the use of the MDRD equation for patients that are not between the ages of 18 and 70, are , have extremes of body size, muscle mass, or nutritional status, or are non- or non-. According to the National Kidney Foundation, irrespective of diagnosis, the stage of the disease is based on the level of kidney function: Stage Description GFR(mL/min/1.73 m(2)) 1 Kidney damage with normal or decreased GFR 90 2 Kidney damage with mild decrease in GFR 60-89 3 Moderate decrease in GFR 30-59 4 Severe decrease in GFR 15-29 5 Kidney failure <15 (or dialysis) 17 Desirable <150 Borderline high 150-199 High 200-499 Very High >500 18 Desirable <200 Borderline high 200-239 High >239 19 Low <40 Desirable: 40-60 High: >60 20 Desirable: <100 mg/dL Near Optimal: 100-129 mg/dL Borderline High: 130-159 mg/dL High: 160-189 mg/dL Very High: >189 mg/dL 21 Therapeutic target for the treatment of diabetes Mellitus patients is <7% HBA1C, and in selective patients <6.0%.Please refer to [place] [employer] Diabetic care guidelines for further information. 22 Desirable <150 Borderline high 150-199 High 200-499 Very High >500 23 Desirable <200 Borderline high 200-239 High >239 24 Low <40 Desirable: 40-60 High: >60 25 Desirable: <100 mg/dL Near Optimal: 100-129 mg/dL Borderline High: 130-159 mg/dL High: 160-189 mg/dL Very High: >189 mg/dL 26 Because ethnic data is not always readily available, this report includes an eGFR for both -Americans and non- Americans. The National Kidney Disease Education Program (NKDEP) does not endorse the use of the MDRD equation for patients that are not between the ages of 18 and 70, are , have extremes of body size, muscle mass, or nutritional status, or are non- or non-. According to the National Kidney Foundation, irrespective of diagnosis, the stage of the disease is based on the level of kidney function: Stage Description GFR(mL/min/1.73 m(2)) 1 Kidney damage with normal or decreased GFR 90 2 Kidney damage with mild decrease in GFR 60-89 3 Moderate decrease in GFR 30-59 4 Severe decrease in GFR 15-29 5 Kidney failure <15 (or dialysis) 27 Because ethnic data is not always readily available, this report includes an eGFR for both -Americans and non- Americans. The National Kidney Disease Education Program (NKDEP) does not endorse the use of the MDRD equation for patients that are not between the ages of 18 and 70, are , have extremes of body size, muscle mass, or nutritional status, or are non- or non-. According to the National Kidney Foundation, irrespective of diagnosis, the stage of the disease is based on the level of kidney function: Stage Description GFR(mL/min/1.73 m(2)) 1 Kidney damage with normal or decreased GFR 90 2 Kidney damage with mild decrease in GFR 60-89 3 Moderate decrease in GFR 30-59 4 Severe decrease in GFR 15-29 5 Kidney failure <15 (or dialysis) 28 FASTING 10 HOUR 29 Desirable <150 Borderline high 150-199 High 200-499 Very High >500 30 Desirable <200 Borderline high 200-239 High >239 31 Low <40 Desirable: 40-60 High: >60 32 Desirable: <100 mg/dL Near Optimal: 100-129 mg/dL Borderline High: 130-159 mg/dL High: 160-189 mg/dL Very High: >189 mg/dL 33 Because ethnic data is not always readily available, this report includes an eGFR for both -Americans and non- Americans. The National Kidney Disease Education Program (NKDEP) does not endorse the use of the MDRD equation for patients that are not between the ages of 18 and 70, are , have extremes of body size, muscle mass, or nutritional status, or are non- or non-. According to the National Kidney Foundation, irrespective of diagnosis, the stage of the disease is based on the level of kidney function: Stage Description GFR(mL/min/1.73 m(2)) 1 Kidney damage with normal or decreased GFR 90 2 Kidney damage with mild decrease in GFR 60-89 3 Moderate decrease in GFR 30-59 4 Severe decrease in GFR 15-29 5 Kidney failure <15 (or dialysis) 34 Because ethnic data is not always readily available, this report includes an eGFR for both -Americans and non- Americans. The National Kidney Disease Education Program (NKDEP) does not endorse the use of the MDRD equation for patients that are not between the ages of 18 and 70, are , have extremes of body size, muscle mass, or nutritional status, or are non- or non-. According to the National Kidney Foundation, irrespective of diagnosis, the stage of the disease is based on the level of kidney function: Stage Description GFR(mL/min/1.73 m(2)) 1 Kidney damage with normal or decreased GFR 90 2 Kidney damage with mild decrease in GFR 60-89 3 Moderate decrease in GFR 30-59 4 Severe decrease in GFR 15-29 5 Kidney failure <15 (or dialysis) 35 L2-3 LEFT INTERVERTEBRAL DISC DISPLACEMENT LUMBAR 36 FASTING 10 HOUR 37 Because ethnic data is not always readily available, this report includes an eGFR for both -Americans and non- Americans. The National Kidney Disease Education Program (NKDEP) does not endorse the use of the MDRD equation for patients that are not between the ages of 18 and 70, are , have extremes of body size, muscle mass, or nutritional status, or are non- or non-. According to the National Kidney Foundation, irrespective of diagnosis, the stage of the disease is based on the level of kidney function: Stage Description GFR(mL/min/1.73 m(2)) 1 Kidney damage with normal or decreased GFR 90 2 Kidney damage with mild decrease in GFR 60-89 3 Moderate decrease in GFR 30-59 4 Severe decrease in GFR 15-29 5 Kidney failure <15 (or dialysis) 38 Desirable <150 Borderline high 150-199 High 200-499 Very High >500 39 Desirable <200 Borderline high 200-239 High >239 40 Low <40 Desirable: 40-60 High: >60 41 Desirable <100 Near Optimal 100-129 Borderline high 130-159 High 160-189 Very High >189 42 Therapeutic target for the treatment of diabetes Mellitus patients is <7% HBA1C, and in selective patients <6.0%.Please refer to [place] [employer] Diabetic care guidelines for further information. 43 RUN DATE: 09/02/13 [facility] LAB LIVE PAGE 1 RUN TIME: 1055 [address] [address] Specimen Inquiry Name: HO KWON : [address]: Sol Reynoso MD Acct: [id number] Unit: [id number] AGE: 53 Location: [facility] Re09/01/13 SEX: F Status: REG REF SPEC: [id number] ALESSANDRO: 09/01/13-[address]: Sol Reynoso MD REQ: [id number] RECD: 09/01/130 STATUS: SOUT _ ORDERED: IMAGE ANALYSIS, HPV/Thin Prep FINAL DIAGNOSIS Negative for Intraepithelial lesion or Malignancy COMMENTS: Specimen sent to [facility] in [place], [place] on 09/02/13 by [id number] at 1022. Results will be reported separately. A. Ectocervical/Endocervical Specimen Adequacy: Satisfactory of evaluation Transformation zone component identified Patient Information: HPV: High risk HPV DNA testing regardless of pap results. Actual Specimen Date: 09/01/13 LMP If Unknown: 2008 Post Menopausal?: Y Hysterectomy?: N Previous Abnormal Pap Smears?:N Signed (signature on file) JOSE ALBERTO Rivera (ASCP) 09/02/13 1055 This Pap test was evaluated with the assistance of the [employer]ul[employer]Prep Test Imaging System. Due to cytologic findings at the business initiatives manager microscope, comprehensive manual rescreening by a Vice President Quality Improvement may be required. The Pap Smear is a screening test designed to aid in the detection of premalignant and malignant conditions of the uterine cervix. It is not a diagnostic procedure and should not be used as the sole means of detecting cervical cancer. Both false- positive and false- negative reports do occur. Depending on your risk status, a Pap smear shoudl be obtained and evaluated every 1-3 years. END OF REPORT * ML=Testing performed at Main Lab DEPARTMENT OF PATHOLOGY, [address] [place] [address] Warren Thurston M.D. Director [facility] Permit #[id number] The following Other High Risk HPV types were not detected: 31, 33, 35, 39, 45, 51, 52, 56, 58, 59, 66, and 68 Test Performed by: [place] [address] Pewter Finisher: Arley Robles III, M.D. 45 HDL Interpretation: Undesirable: High Risk: Less than 40 mg/dL Desirable: Low Risk: Greater than 60 mg/dL 46 LDL Interpretation: Low Risk Optimal Level: LDL Less than 100 mg/dL Near or Above Optimal: LDL 100-129 mg/dL Borderline High Risk: LDL 130-159 mg/dL High Risk: LDL 160-189 mg/dL Very High Risk: LDL Greater than 189 mg/dL 47 Because ethnic data is not always readily available, this report includes an eGFR for both -Americans and non- Americans. The National Kidney Disease Education Program (NKDEP) does not endorse the use of the MDRD equation for patients that are not between the ages of 18 and 70, are , have extremes of body size, muscle mass, or nutritional status, or are non- or non-. According to the National Kidney Foundation, irrespective of diagnosis, the stage of the disease is based on the level of kidney function: Stage Description GFR(mL/min/1.73 m(2)) 1 Kidney damage with normal or decreased GFR 90 2 Kidney damage with mild decrease in GFR 60-89 3 Moderate decrease in GFR 30-59 4 Severe decrease in GFR 15-29 5 Kidney failure <15 (or dialysis) 48 Therapeutic target for the treatment of diabetes Mellitus patients is <7% HBA1C, and in selective patients <6.0%.Please refer to [place] [employer] Diabetic care guidelines for further information. 49 Microalbuminuria in a random sample is defined as: Microalbumin/Creatinine ratio of 30-299 ug/mg. 50 THERAPEUTIC TARGET FOR THE TREATMENT OF DIABETES MELLITUS PATIENTS IS <7% HBA1C, AND IN SELECTIVE PATIENTS <6.0%. PLEASE REFER TO [employer]ATION DIABETIC CARE GUIDELINES FOR FURTHER INFORMATION. 51 Anion gap measurement may be of limited value in the presence of any alkalosis, especially in a combined acid base disorder. . 52 A metabolite of Naproxen, O-desmethylnaproxen, has been shown to interfere with the [place] method for measuring total bilirubin. Samples from patients who have taken Naproxen have shown spurious elevation in total bilirubin levels. 53 Because ethnic data is not always readily available, this report includes an eGFR for both -Americans and non- Americans. The National Kidney Disease Education Program (NKDEP) does not endorse the use of the MDRD equation for patients that are not between the ages of 18 and 70, are , have extremes of body size, muscle mass, or nutritional status, or are non- or non-. According to the National Kidney Foundation, irrespective of diagnosis, the stage of the disease is based on the level of kidney function: Stage Description GFR(mL/min/1.73 m(2)) 1 Kidney damage with normal or decreased GFR 90 2 Kidney damage with mild decrease in GFR 60-89 3 Moderate decrease in GFR 30-59 4 Severe decrease in GFR 15-29 5 Kidney failure <15 (or dialysis) 54 CHOLESTEROL INTERPRETATION: Desirable: Less than 200 MG/DL Borderline-High Risk: 200-239 MG/DL High-Risk: 240 MG/DL and over 55 HDL INTERPRETATION: Undesirable: High Risk: Less than 40 MG/DL Desirable: Low Risk: Greater than 60 MG/DL 56 LDL INTERPRETATION: Low Risk Optimal Level: LDL Less than 100 MG/DL Near or Above Optimal: LDL 100-129 MG/DL Borderline High Risk: LDL 130-159 MG/DL High Risk: LDL 160-189 MG/DL Very High Risk: LDL Greater than 189 MG/DL 57 MICROALBUMINURIA IN A RANDOM SAMPLE IS DEFINED : MICROALBUMIN/CREATININE RATIO OF 30-299 ug/mg. . 58 CHOLESTEROL INTERPRETATION: Desirable: Less than 200 MG/DL Borderline-High Risk: 200-239 MG/DL High-Risk: 240 MG/DL and over 59 HDL INTERPRETATION: Undesirable: High Risk: Less than 40 MG/DL Desirable: Low Risk: Greater than 60 MG/DL 60 LDL INTERPRETATION: Low Risk Optimal Level: LDL Less than 100 MG/DL Near or Above Optimal: LDL 100-129 MG/DL Borderline High Risk: LDL 130-159 MG/DL High Risk: LDL 160-189 MG/DL Very High Risk: LDL Greater than 189 MG/DL 61 THERAPEUTIC TARGET FOR THE TREATMENT OF DIABETES MELLITUS PATIENTS IS <7% HBA1C, AND IN SELECTIVE PATIENTS <6.0%. PLEASE REFER TO [employer] DIABETIC CARE GUIDELINES FOR FURTHER INFORMATION. 62 Anion gap measurement may be of limited value in the presence of any alkalosis, especially in a combined acid base disorder. . 63 A metabolite of Naproxen, O-desmethylnaproxen, has been shown to interfere with the [place] method for measuring total bilirubin. Samples from patients who have taken Naproxen have shown spurious elevation in total bilirubin levels. 64 Because ethnic data is not always readily available, this report includes an eGFR for both -Americans and non- Americans. The National Kidney Disease Education Program (NKDEP) does not endorse the use of the MDRD equation for patients that are not between the ages of 18 and 70, are , have extremes of body size, muscle mass, or nutritional status, or are non- or non-. According to the National Kidney Foundation, irrespective of diagnosis, the stage of the disease is based on the level of kidney function: Stage Description GFR(mL/min/1.73 m(2)) 1 Kidney damage with normal or decreased GFR 90 2 Kidney damage with mild decrease in GFR 60-89 3 Moderate decrease in GFR 30-59 4 Severe decrease in GFR 15-29 5 Kidney failure <15 (or dialysis) 65 THERAPEUTIC TARGET FOR THE TREATMENT OF DIABETES MELLITUS PATIENTS IS <7% HBA1C, AND IN SELECTIVE PATIENTS <6.0%. PLEASE REFER TO [employer]ATION DIABETIC CARE GUIDELINES FOR FURTHER INFORMATION. 66 CHOLESTEROL INTERPRETATION: Desirable: Less than 200 MG/DL Borderline-High Risk: 200-239 MG/DL High-Risk: 240 MG/DL and over 67 HDL INTERPRETATION: Undesirable: High Risk: Less than 40 MG/DL Desirable: Low Risk: Greater than 60 MG/DL 68 LDL INTERPRETATION: Low Risk Optimal Level: LDL Less than 100 MG/DL Near or Above Optimal: LDL 100-129 MG/DL Borderline High Risk: LDL 130-159 MG/DL High Risk: LDL 160-189 MG/DL Very High Risk: LDL Greater than 189 MG/DL Procedures Date Code Description Status 12/02/2017 35894 Sleep Study Unattended,HRT Rate,Oxygen Sat,Resp Completed Effort/Airflow 10/18/2017 32495 EKG Tracing & Interpretation Completed 09/05/2017 41596 Diffusing Capacity Completed 09/05/2017 04690 Plethysmography Determination Lung Volumes & Per Completed Airway Resist 09/05/2017 48945 Pulmonary Function><Bronchodil Completed 02/15/2017 [id number] Diabetic Retinal Eye Exam Completed 02/07/2017 36401 Admin & Interp Of Health Risk Assessment w/ Patient Completed 02/07/2017 [id number] Mammogram Completed 07/29/2014 89909 Laminotomy W/Decomp NRV RT,One Interspace,Lumbar Completed 07/20/2014 58236 Stress Test Completed 07/20/2014 91110 Myocardial Perfusion Imaging Tomographic (Spect) Completed Multiple Studies 07/20/2014 37020 Myocardial Perfusion Imaging Tomographic (Spect) Completed Multiple Studies 05/14/2014 [id number] Diabetic Retinal Eye Exam Completed 09/18/2013 [id number] Colonoscopy Completed 09/08/2013 [id number] Mammogram Completed 09/01/2013 97571 EKG Tracing & Interpretation Completed 11/06/2012 [id number] Diabetic Retinal Eye Exam Completed 05/22/2011 72424 Stress Test Supervsn W/Out I/R Completed 05/22/2011 09670 Treadmill Interp/Report Only Completed 05/15/2011 00081 ECHO Transthoracic, Real-Time 2D With Doppler And Completed Color Flow 05/01/2011 54808 EKG Tracing & Interpretation Completed 10/26/2009 82877 EKG Tracing & Interpretation Completed 07/20/2008 [id number] Mammogram Completed 05/28/2008 52426 EKG Tracing & Interpretation Completed 08/27/2007 [id number] Diabetic Foot Exam Completed 04/03/2007 42214 EKG Tracing & Interpretation Completed 04/03/2007 77963 EKG Tracing & Interpretation Completed 01/07/2004 [id number] Diabetic Foot Exam Completed Encounters Type Date Location Provider Dx Diagnosis Office Visit 05/08/2018 Pulmonology And Analia Mejia, J44.1 Chronic obstructive 1:00p Sleep Services Of pulmonary disease w [facility] (acute) exacerbation G47.33 Obstructive sleep apnea (adult) (pediatric) E66.09 Other obesity due to excess calories Office Visit 04/01/2018 10:40a [facility] Internal Norris Roberson, R21 Rash and other Medicine - [facility] nonspecific skin [place] eruption Office Visit 03/13/2018 3:30p Pulmonology And Analia G47.33 Obstructive sleep Sleep Services Of MD Jackie apnea (adult) [facility] (pediatric) J43.9 Emphysema, unspecified E66.09 Other obesity due to excess calories Z72.0 Tobacco use Office Visit 11/23/2017 8:00a Pulmonology And Analia J43.9 Emphysema, Sleep Services Of MD Jackie unspecified 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 preprocedural [place] examination G51.3 Clonic hemifacial spasm I10 Essential (primary) hypertension E11.9 Type 2 diabetes mellitus without complications J45.40 Moderate persistent asthma, uncomplicated F17.210 Nicotine dependence, cigarettes, uncomplicated Office Visit 09/18/2017 11:20a [facility] Internal Sridevi Callahan, I10 Essential ( primary) Medicine - N.P. hypertension [place] J44.9 Chronic obstructive pulmonary disease, unspecified E11.9 Type 2 diabetes mellitus without complications Office Visit 07/31/2017 3:20p [facility] Internal Norris Roberson J44.1 Chronic obstructive Medicine - [facility] [employer] pulmonary disease w [place] (acute) exacerbation J20.9 Acute bronchitis, unspecified Office Visit 07/05/2017 11:20a [facility] Internal Leticia J44.1 Chronic Medicine - Neeraj Durant obstructive [place] pulmonary disease w (acute) exacerbation Z72.0 Tobacco use E11.9 Type 2 diabetes mellitus without complications K13.79 Other lesions of oral mucosa Office Visit 02/07/2017 10:00a [facility] Internal Sridevi Callahan, Z00.00 Encntr for Medicine - N.P. general adult [place] medical exam w/o abnormal findings Z12.31 Encntr screen mammogram for malignant neoplasm of breast E11.9 Type 2 diabetes mellitus without complications I10 Essential (primary) hypertension J45.30 Mild persistent asthma, uncomplicated F17.210 Nicotine dependence, cigarettes, uncomplicated H53.8 Other visual disturbances F32.9 Major depressive disorder, single episode, unspecified N39.3 Stress incontinence (female) (male) Office Visit 08/09/2016 10:20a [facility] Internal Sridevi Callahan, J45.30 Mild persistent Medicine - N.P. asthma, [place] uncomplicated E11.9 Type 2 diabetes mellitus without complications F32.9 Major depressive disorder, single episode, unspecified G89.4 Chronic pain syndrome G25.81 Restless legs syndrome I10 Essential (primary) hypertension R60.0 Localized edema K21.9 Gastro-esophageal reflux disease without esophagitis Z12.31 Encntr screen mammogram for malignant neoplasm of breast F17.210 Nicotine dependence, cigarettes, uncomplicated Office Visit 12/02/2015 11:40a [facility] Internal Sridevi Callahan, F32.9 Major depressive Medicine - N.P. disorder, single [place] episode, unspecified G89.4 Chronic pain syndrome Z12.31 Encntr screen mammogram for malignant neoplasm of breast Office Visit 11/01/2015 9:00a [facility] Internal Sridevi Callahan, F32.9 Major depressive Medicine - N.P. disorder, single [place] episode, unspecified E11.9 Type 2 diabetes mellitus without complications M54.17 Radiculopathy, lumbosacral region E78.0 Pure hypercholesterolemia Office Visit 05/16/2015 8:40a [facility] Internal Sridevi Varyemi, J20.9 Acute bronchitis, Medicine - N.P. unspecified [place] F17.210 Nicotine dependence, cigarettes, uncomplicated Office Visit 05/09/2015 10:40a [facility] Internal Sridevi Varn, J20.9 Acute bronchitis, Medicine - N.P. unspecified [place] F17.210 Nicotine dependence, cigarettes, uncomplicated Office Visit 04/29/2015 2:40p [facility] Internal Sridevi Varn, J20.9 Acute bronchitis, Medicine - N.P. unspecified [place] J45.909 Unspecified asthma, uncomplicated Office Visit 04/26/2015 10:00a [facility] Internal Sridevi Callahan, J20.9 Acute bronchitis, Medicine - N.P. unspecified [place] J45.909 Unspecified asthma, uncomplicated F17.210 Nicotine dependence, cigarettes, uncomplicated Office Visit 03/03/2015 2:30p [facility] Yesenia Rodriguez 333.94 Restless Leg Services Of Lesly Olivarez M.D. Syndrome 781.0 Abnormal Involuntary Movements 351.8 Nerve Disorder Facial Other Office Visit 02/08/2015 10:00a [facility] Kaitlin Rodriguez 781.0 Abnormal Services Of Lesly Olivarez M.D. Involuntary Movements 333.94 Restless Leg Syndrome Office Visit 11/05/2014 8:40a [facility] Internal Sridevi Callahan, V41.1 Eye Problem Medicine - N.P. Other [place] 401.1 Hypertension Benign 781.0 Abnormal Involuntary Movements Office Visit 07/29/2014 2:27p [facility] Medical Grace SMagaly 250.00 Diabetes Assoc,pc Foster, N.P. 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 Displacement Lumbar W/O Myelopathy Office Visit 06/08/2014 [facility] Internal Sridevi 311 Depressive Disorder 10:00a Medicine - Varn, N.P. Not Elsewhere Spec [place] Office Visit 05/07/2014 [facility] Internal Sridevi 724.5 Backache Unspec 8:40a Medicine - Varn, N.P. 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 Lumbar W/O Myelopathy 724.4 Neuritis Or Radiculitis Thoracic Or Lumbosacral Unspec Office Visit 04/06/2014 9:00a [facility] Internal Medicine - Norris Roberson NP 724.2 Lumbago [place] 724.3 Sciatica Office Visit 10/22/2013 2:20p [facility] Internal Sol Reynoso, 378.9 Eye Movement Medicine - Neeraj, FACP Disorder Unspec [place] Office Visit 09/01/2013 9:20a [facility] Internal Sol Reynoso, V70.0 Examination Medicine - Neeraj, [facility] Routine [facility] V72.31 Routine Denial Resolution Specialist Examination V76.10 Screening For Malignant Neoplasm Breast 250.00 Diabetes Mellitus W/O Compl Type II Or Unspec Controlled 272.0 Hypercholesterolemia Pure 724.2 Lumbago 401.1 Hypertension Benign V73.89 Screening Examination Viral Diseases Other Spec Office Visit 06/23/2013 3:00p [facility] Internal Medicine Sol Reynoso M.D., 724.2 Lumbago - [place] FACP 272.0 Hypercholesterolemia Pure 250.00 Diabetes Mellitus W/O Compl Type II Or Unspec Controlled Office Visit 04/27/2013 2:20p [facility] Internal Sridevi Callahan 466.0 Bronchitis Acute Medicine - N.P. [place] Office Visit 04/08/2013 10:00a [facility] Internal Sol Reynoso, 250.00 Diabetes Medicine - M.DMagaly, FACP Mellitus W/O [place] Compl Type II Or Unspec Controlled Office Visit 11/21/2012 3:20p Neurosurgery Shawn Briscoe 724.3 Sciatica Services Of [facility] Neeraj Kelly Office Visit 10/21/2012 11:20a Neurosurgery Shawn Briscoe 724.3 Sciatica Services Of Lesly Kelly M.D. Office Visit 10/13/2012 9:40a [facility] Internal Sol Reynoso, 250.00 Diabetes Medicine - Neeraj, FACP Mellitus W/O [place] Compl Type II Or Unspec Controlled 724.3 Sciatica 305.1 Tobacco Use Disorder Office Visit 10/03/2012 10:00a Neurosurgery Shawn Briscoe 724.2 Lumbago Services Of [facility] Neeraj Kelly Office Visit 09/08/2012 9:00a [facility] Internal Sridevi Callahan 724.5 Backache Unspec Medicine - N.P. [place] Office Visit 03/26/2012 10:00a [facility] Internal Sol Angeles, 250.00 Diabetes Medicine - MAna, FACP Mellitus W/O [place] Compl Type II Or Unspec Controlled 272.4 Hyperlipidemia Other Unspec 724.2 Lumbago Office Visit 02/22/2012 9:00a Neurosurgery Shawn Briscoe 722.93 Disc Disorder Services Of Lesly Kelly M.D. Other & Unspec Lumbar Region Office Visit 2012 3:00p [facility] Internal Sol Reynoso 722.93 Disc Disorder Medicine - M.Sheree, FACP Other & Unspec [place] Lumbar Region Office Visit 01/14/2012 12:00p [facility] Internal Sol Reynoso 724.3 Sciatica Medicine - M.DMagaly, FACP [place] Office Visit 11/20/2011 11:20a [facility] Internal Joana Munoz 466.0 Bronchitis Acute Medicine - M.D. [place] Office Visit 11/01/2011 11:40a [facility] Internal Sol Reynoso, 250.00 Diabetes Medicine - MAna, FACP Mellitus W/O [place] Compl Type II Or Unspec Controlled 272.0 Hypercholesterolemia Pure Office Visit 10/19/2011 11:00a [facility] Internal Flora Betancourt, 722.93 Disc Disorder Medicine - M.D. Other & Unspec [place] Lumbar Region Office Visit 06/04/2011 9:00a DO Not Use Sol Angeles, 790.21 Impaired Lesly-Lopez Pickard, FACP Fasting Glucose 272.0 Hypercholesterolemia Pure Office 05/22/2011 En[facility] Rizo S. 794.31 Electrocardiogram Visit 1:30p Cardiology Neeraj Ruelas (ECG) (EKG) Abnormal 401.1 Hypertension Benign 786.05 Shortness Of Breath 272.4 Hyperlipidemia Other Unspec Office Visit 05/01/2011 DO Not Use Sol Angeles, 786.09 Dyspnea & 11:40a Maciel Pickard, FACP Respiratory Abnormalities Other Office Visit 03/14/2011 DO Not Use Sol Angeles, 272.4 Hyperlipidemia 11:20a Maciel Pickard, FACP Other Unspec 790.21 Impaired Fasting Glucose 401.1 Hypertension Benign Office Visit 11/21/2010 DO Not Use Sol Angeles, 272.4 Hyperlipidemia Other 2:00p Maciel Pickard, FACP Unspec Office Visit 08/30/2010 DO Not Use Sol Angeles, 272.4 Hyperlipidemia Other 9:00a Maciel Pickard, FACP Unspec 305.1 Tobacco Use Disorder 786.09 Dyspnea & Respiratory Abnormalities Other Office 07/13/2010 DO Not Use Sol 272.0 Hypercholesterolemia Visit 9:00a Ada Salazar M.D., FACP Office 01/31/2010 DO Not Use Sol 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 Visit 10:15a Joshua Salazar M.D., FACP 272.0 Hypercholesterolemia Pure 311 Depressive Disorder Not Elsewhere Spec 278.02 Overweight Office 11/02/2009 DO Not Use Sol 272.0 Hypercholesterolemia Visit 10:45a Maciel Reynoso M.D., Pure FACP 790.21 Impaired Fasting Glucose 311 Depressive Disorder Not Elsewhere Spec Office Visit 10/26/2009 DO Not Use Sol Angeles, 785.9 Cardiovascular 11:30a Maciel Pickard, FACP Symptoms Other 277.7 Dysmetabolic Syndrome X Office Visit 03/29/2009 10:00a DO Not Use Sol Angeles, 465.9 URI Upper Maciel Pickard, FACP Respiratory Infections Acute Unspec Sites 277.7 Dysmetabolic Syndrome X Office Visit 12/20/2008 DO Not Use Sol 277.7 Dysmetabolic Syndrome 10:45a Maciel Reynoso M.D., X FACP Office Visit 11/29/2008 DO Not Use Sol 535.50 Gastritis & 10:45a Maciel Reynoso M.D., Gastroduodenitis FACP Unspec W/O Hemorrhage 277.7 Dysmetabolic Syndrome X V62.82 Bereavement Uncomplicated Office Visit 07/20/2008 9:30a DO Not Use Sol Angeles, 277.7 Dysmetabolic Maciel Pickard, FACP Syndrome X 401.1 Hypertension Benign Office Visit 05/28/2008 2:15p DO Not Use Sol Angeles, V72.31 Routine Denial Resolution Specialist Maciel Pickard, FACP Examination 272.0 Hypercholesterolemia Pure 401.1 Hypertension Benign 309.0 Adjustment Disorder With Depression 300.00 Anxiety State Unspec Office Visit 11/21/2007 9:00a DO Not Use Sol Angeles, 466.0 Bronchitis Acute Maciel Pickard, FACP 491.21 Bronchitis Obstructive Chronic W/Acute Exacerbation Office Visit 11/17/2007 11:30a DO Not Use Sridevi Varn, 466.0 Bronchitis Acute Emissions Testing And Repair Technician-[place] N.P. Office Visit 11/11/2007 2:45p DO Not Use Sridevi Varn, 466.0 Bronchitis Acute Emissions Testing And Repair Technician-[place] N.P. 461.9 Sinusitis Acute Unspec Office Visit 08/18/2007 DO Not Use Sol Angeles, 728.71 Fibromatosis 9:30a Maciel Pickard, FACP Plantar Fascia Office Visit 07/21/2007 DO Not Use Sol Angeles, 620.2 Ovarian Cyst Other 10:45a Maciel Pickard, FACP & Unspec 401.1 Hypertension Benign 272.4 Hyperlipidemia Other Unspec Office Visit 05/08/2007 DO Not Use Sol Angeles, 272.4 Hyperlipidemia Other 3:15p Maciel Pickard, FACP Unspec 620.2 Ovarian Cyst Other & Unspec Office Visit 04/03/2007 2:30p DO Not Use Sol Angeles, 785.1 Palpitations Maciel Pickard, FACP 788.41 Urinary Frequency 300.00 Anxiety State Unspec V72.31 Routine Denial Resolution Specialist Examination Office Visit 05/09/2006 9:00a DO Not Use Sridevi Varn, 466.0 Bronchitis Acute [facility]-Lopez N.P. 461.9 Sinusitis Acute Unspec Office Visit 02/26/2006 2:30p DO Not Use Sol Angeles, 724.1 Pain Thoracic Emissions Testing And Repair TechnicianRenée Pickard, FACP Spine 845.00 Sprains & Strains Ankle Unspec Site Plan of Treatment Future Appointment(s):01/01/2019 9:40 am - Sridevi Callahan, N.P. at [facility] Internal Medicine - Rlojevogy32/15/2019 1:45 pm - Analia Mejia MD at [facility]07/03/2018 - Sridevi Callahan, N.P.Z00.00 Encounter for general adult medical examination without abnoComments:For your routine health maintenance: Your colonoscopy is up to date. You had this in 2013. Your Tetanus immunization is up to date. You received this in 2017. It is good for 10 years unless you have a major injury, then it is good for 5 years. You need to be getting between 1,000 - 1,200 mg of Calcium in daily. The best way to supplement what you get in your diet is to drink Calcium fortified orangejuice. If you take a Calcium supplement be sure it has Vitamin D in it to help absorption.Z12.31 Encounter for screening mammogram for malignant neoplasm ofComments:I have ordered your routine screening mammogram. The imaging department will give you your results at the time of your visit. I encourage you to do self exams. If you should notice any masses or thickening, please give the office a call.I10 Essential (primary) hypertensionComments:For your high blood pressure: Continue with your current medication. I would like you to monitor your blood pressure at home. If your readings at home are consistently higher than 140/90, please call the office.E11.9 Type 2 diabetes mellitus without complicationsComments:For your diabetes: Continue with your current management. You are due for your annual eye exam. Please have your specialist send me a report so I may incorporate this into your record.J45.30 Mild persistent asthma, uncomplicatedComments:For your asthma/COPD:Continue your current management. If at any point you find you need to use yourrescue inhaler more than twice weekly on a regular basis, please call the office. This indicates your asthma is not adequately controlled.F17.210 Nicotine dependence, cigarettes, uncomplicatedComments:I urge you to continue your efforts to quit smoking.R20.8 Other disturbances of skin sensationComments:To further evaluate the numbness in your arms and left leg I have ordered an MRI of your entire spine. I will contact you with your results.M72.2 Plantar fascial fibromatosisComments:For your plantar fasciitis and bunion I have referred you to Dr Bragg.Referral:Surinder Bragg, BRITTANY, Surgery, Foot/PjyxyxbttwK42.9 Gastro-esophageal reflux disease without esophagitisComments:For your esophageal reflux: Continue with your current management. I advise you to avoid food triggers. These include: Spicy, greasy, and acidic foods, along with coffee and alcohol. If at any point you feel your symptoms are not well controlled, please contact the office.R32 Unspecified urinary incontinenceNew Therapy:Physical TherapyComments:For your incontinence issues I have ordered physical therapy for you.
[2018-07-06 10:59] LABS: Urine Appearance Clear; Urine Blood 2+ (Negative); Urine Color Yellow; Urine Ketones Negative (Negative); Urine Protein Negative (Negative); Urine Red Blood Cell Trace(0-2/hpf) (Absent); Urine Specific Gravity 1.004 (1.010-1.030); Urine Urobilinogen Negative (Negative); Urine White Blood Cell Absent (Absent)
[2018-07-06] MEDS ORDERED: Morphine VIAL* 10 MG/ML 1 ML VIAL IM ONE (11:26)
[2018-07-06 12:23] VITALS: BP 142/76
== END 2018-07-06 12:22 | disposition home or self-care (01) ==
LOC: ED 10:06
DX: M54.5 Low back pain (principal); M43.17 Spondylolisthesis, lumbosacral region; R31.29 Other microscopic hematuria; Z98.890 Other specified postprocedural states; E11.9 Type 2 diabetes mellitus without complications; Z79.84 Long term (current) use of oral hypoglycemic drugs; I10 Essential (primary) hypertension; K21.9 Gastro-esophageal reflux disease without esophagitis; F17.210 Nicotine dependence, cigarettes, uncomplicated
CPT/HCPCS: 72131; 81003; 81015; 96372; 99283; J1885; J2270